=== PATIENT | female | born 1935 | race Caucasian/White ===

== ENCOUNTER 2021-07-05 19:56 | Inpatient (IN) ==
[2021-07-05] MEDS ORDERED: SODIUM CHLORIDE 0.9% 500 ML IV STA (21:40)
[2021-07-05] MEDS ORDERED: ONDANSETRON 4 MG/2 ML VIAL IV STA (21:40)
[2021-07-05 22:27] LABS: Basophils % 0.3 % (0.0-0.8); Eosinophils % 0.1 % (0.00-10.9); Hematocrit 33.7 VOL% (35.7-47.0); Hemoglobin 12.8 GM/DL (12.0-16.0); Immature Granulocytes % 0.5 %; Immature Granulocytes Absolute 0.07 #; Lymphocytes # 1.8 10*3/uL (1.4-4.0); Lymphocytes % 13.5 % (21.3-54.2); Mean Corpuscular Volume 88.7 FL (87-102); Mean Platelet Volume 9.1 FL (9.6-12.0); Monocytes # 1.1 10*3/uL (0.11-0.8); Monocytes % 8.3 % (1.7-12.7); Neutrophils % 77.3 % (38.7-73.9); Platelet Count 266 T/CUMM (130-400); Red Cell Distribution Width 10.9 % (9.3-17.3); White Blood Count 13.1 T/CUMM (4-12)
[2021-07-05 22:54] LABS: Alanine Aminotransferase 25 U/L (13-56); Albumin 3.8 G/DL (3.4-5.0); Alkaline Phosphatase 103 U/L (45-117); Aspartate Amino Transferase 30 U/L (0-37); Blood Urea Nitrogen 32 MG/DL (7-18); Carbon Dioxide 31 MMOL/L (21-32); Chloride 71 MMOL/L (98-107); Glucose 133 MG/DL (74-106); Osmolality,Calculated 237.2 MOS/KG (273-304); Potassium 2.9 MMOL/L (3.5-5.1)
[2021-07-05 22:56] LABS: Sodium 113 MMOL/L (136-145)
[2021-07-05] MEDS ORDERED: POTASSIUM CHLORIDE 20 MEQ TABLET PO STA (22:57)
[2021-07-05 23:06] LABS: RBC,Urine 6 /HPF (0-4); Squamous Epithelial Cell,Urine Occasional /HPF (0-10); Urine Appearance Clear (Clear); Urine Color Yellow (Yellow); Urine pH 6.5 (4.5-8.0)
[2021-07-05 23:07] LABS: Bilirubin,Urine Negative (Negative); Blood, Urine Trace mg/dL (Negative); Glucose,Urine (UA) Negative (Negative); Ketones,Urine Negative (Negative); Nitrite,Urine Negative (Negative); Protein,Urine Negative (Negative); Urine Urobilinogen 0.2 eU/dL (<2.0)
[2021-07-05] MEDS ORDERED: ALBUTEROL 2.5 MG/3 ML NEB RESP TX PRN (23:24)
[2021-07-05] MEDS ORDERED: ONDANSETRON 4 MG/2 ML VIAL IV PRN (23:25)
[2021-07-05] MEDS ORDERED: POTASSIUM CHLORIDE 20 MEQ TABLET PO ONE ×2 (23:55)
[2021-07-06] MEDS ORDERED: SODIUM CHLORIDE 3% INJ 100 ML IV ONE ×2 (01:00→05:02)
[2021-07-06] MEDS: PANTOPRAZOLE 40 MG VIAL IV SCH (01:01)
[2021-07-06 01:49] LABS: Calcium 9.1 MG/DL (8.5-10.1); Osmolality,Calculated 235.2 MOS/KG (273-304); Potassium 2.9 MMOL/L (3.5-5.1)
[2021-07-06 04:32] LABS: Basophils % 0.2 % (0.0-0.8); Eosinophils % 0.3 % (0.00-10.9); Hematocrit 32.3 VOL% (35.7-47.0); Hemoglobin 11.9 GM/DL (12.0-16.0); Immature Granulocytes % 0.5 %; Immature Granulocytes Absolute 0.05 #; Lymphocytes # 1.8 10*3/uL (1.4-4.0); Lymphocytes % 17.3 % (21.3-54.2); Mean Corpuscular HGB Conc 36.8 GM/DL (32-36); Mean Platelet Volume 9.7 FL (9.6-12.0); Monocytes # 1.1 10*3/uL (0.11-0.8); Monocytes % 10.4 % (1.7-12.7); Neutrophils % 71.3 % (38.7-73.9); Platelet Count 252 T/CUMM (130-400); Red Blood Count 3.59 MC/CUMM (3.8-5.5); White Blood Count 10.5 T/CUMM (4-12)
[2021-07-06 04:58] LABS: Albumin 3.5 G/DL (3.4-5.0); Bilirubin,Total 0.5 MG/DL (0.20-1.00); Calcium 8.8 MG/DL (8.5-10.1); Osmolality,Calculated 240.8 MOS/KG (273-304); Risk Ratio 2.61; Thyroid Stimulating Hormone 0.703 uIU/ml (0.358-3.74); Total Protein 6.7 G/DL (6.4-8.2)
[2021-07-06] MEDS: POTASSIUM CHLORIDE 20 MEQ TABLET PO PRN ×2 (05:30→15:13)
[2021-07-06] MEDS: INSULIN LISPRO 100 UNIT/ML SUBCUT SCH ×3 (05:31→18:22)
[2021-07-06] MEDS ORDERED: POTASSIUM CHLORIDE 20 MEQ TABLET PO ONE (07:00)
[2021-07-06 07:59] LABS: Calcium 9.3 MG/DL (8.5-10.1); Osmolality,Calculated 242.6 MOS/KG (273-304); Potassium 3.4 MMOL/L (3.5-5.1)
[2021-07-06] MEDS ORDERED: SODIUM CHLORIDE 0.9% 1,000 ML IV SCH (08:30)
[2021-07-06 12:26] LABS: Osmolality,Calculated 239.8 MOS/KG (273-304); Potassium 3.6 MMOL/L (3.5-5.1)
[2021-07-06 16:45] LABS: Calcium 8.6 MG/DL (8.5-10.1); Osmolality,Calculated 249.1 MOS/KG (273-304); Potassium 3.6 MMOL/L (3.5-5.1)
[2021-07-06] MEDS ORDERED: GLUCAGON 1 MG VIAL IM PRN (17:23)
[2021-07-06] MEDS ORDERED: DEXTROSE 10% 250 ML BAG IV PRN (17:30)
[2021-07-06] MEDS: SODIUM CHLORIDE 0.9% 1,000 ML IV SCH (18:00)
[2021-07-06 20:20] LABS: Calcium 8.8 MG/DL (8.5-10.1); Osmolality,Calculated 249.9 MOS/KG (273-304)
[2021-07-07] MEDS: PANTOPRAZOLE 40 MG VIAL IV SCH ×2 (00:02→21:11)
[2021-07-07 00:43] LABS: Calcium 8.9 MG/DL (8.5-10.1); Osmolality,Calculated 255.5 MOS/KG (273-304); Potassium 4.2 MMOL/L (3.5-5.1)
[2021-07-07] MEDS: INSULIN LISPRO 100 UNIT/ML SUBCUT SCH ×5 (00:52→20:43)
[2021-07-07 05:51] LABS: Basophils # 0.1 10*3/uL (0.0-0.2); Basophils % 0.8 % (0.0-0.8); Eosinophils # 0.1 10*3/uL (0.0-0.87); Eosinophils % 0.7 % (0.00-10.9); Hematocrit 35.2 VOL% (35.7-47.0); Hemoglobin 12.3 GM/DL (12.0-16.0); Immature Granulocytes % 0.2 %; Immature Granulocytes Absolute 0.02 #; Lymphocytes # 2.1 10*3/uL (1.4-4.0); Lymphocytes % 24.6 % (21.3-54.2); Mean Corpuscular HGB Conc 34.9 GM/DL (32-36); Mean Corpuscular Volume 96.2 FL (87-102); Mean Platelet Volume 11.7 FL (9.6-12.0); Monocytes # 0.8 10*3/uL (0.11-0.8); Monocytes % 9.9 % (1.7-12.7); Neutrophils % 63.8 % (38.7-73.9); Platelet Count 390 T/CUMM (130-400); Red Blood Count 3.66 MC/CUMM (3.8-5.5); Red Cell Distribution Width 11.6 % (9.3-17.3); White Blood Count 8.4 T/CUMM (4-12)
[2021-07-07 06:11] LABS: Calcium 9.1 MG/DL (8.5-10.1); Osmolality,Calculated 244.2 MOS/KG (273-304); Potassium 5.2 MMOL/L (3.5-5.1)
[2021-07-07 08:23] LABS: Calcium 9.1 MG/DL (8.5-10.1); Osmolality,Calculated 255.4 MOS/KG (273-304); Potassium 4.1 MMOL/L (3.5-5.1)
[2021-07-07] MEDS: SIMVASTATIN 20 MG TABLET PO SCH (11:11)
[2021-07-07] MEDS: RIVAROXABAN 10 MG TABLET PO SCH (11:12)
[2021-07-07] MEDS: CARTEOLOL 1% OPH SOLN 5 ML BOTTLE BOTH EYES SCH (11:13)
[2021-07-07] MEDS: BRIMONIDINE 0.1% OPH SOLN 5 ML BOTTLE BOTH EYES SCH ×2 (11:13→21:13)
[2021-07-07] MEDS: PHENYTOIN 50 MG PO SCH (12:30)
[2021-07-07 12:54] LABS: Calcium 8.8 MG/DL (8.5-10.1); Osmolality,Calculated 253.5 MOS/KG (273-304); Potassium 4.2 MMOL/L (3.5-5.1)
[2021-07-07] MEDS: SODIUM CHLORIDE 0.9% 1,000 ML IV SCH (15:07)
[2021-07-07 16:12] LABS: Osmolality,Calculated 256.2 MOS/KG (273-304); Potassium 4.4 MMOL/L (3.5-5.1)
[2021-07-07] MEDS ORDERED: PHENYTOIN 50 MG PO SCH ×2 (19:00→21:00)
[2021-07-07] MEDS: BIMATOPROST 0.01% OPH SOLN 2.5 ML BOTTLE BOTH EYES SCH (21:12)
[2021-07-08 05:34] LABS: Basophils # 0.1 10*3/uL (0.0-0.2); Basophils % 1.1 % (0.0-0.8); Eosinophils # 0.1 10*3/uL (0.0-0.87); Eosinophils % 0.6 % (0.00-10.9); Hemoglobin 11.7 GM/DL (12.0-16.0); Immature Granulocytes % 0.4 %; Immature Granulocytes Absolute 0.04 #; Lymphocytes # 1.4 10*3/uL (1.4-4.0); Lymphocytes % 12.2 % (21.3-54.2); Mean Corpuscular HGB Conc 34.4 GM/DL (32-36); Mean Corpuscular Volume 95.8 FL (87-102); Mean Platelet Volume 9.3 FL (9.6-12.0); Monocytes # 1.1 10*3/uL (0.11-0.8); Monocytes % 9.9 % (1.7-12.7); Neutrophils % 75.8 % (38.7-73.9); Platelet Count 266 T/CUMM (130-400); Red Blood Count 3.55 MC/CUMM (3.8-5.5); Red Cell Distribution Width 11.6 % (9.3-17.3); White Blood Count 11.1 T/CUMM (4-12)
[2021-07-08 05:52] LABS: Calcium 9.3 MG/DL (8.5-10.1); Osmolality,Calculated 253.4 MOS/KG (273-304); Potassium 4.2 MMOL/L (3.5-5.1)
[2021-07-08] MEDS: INSULIN LISPRO 100 UNIT/ML SUBCUT SCH ×4 (07:57→21:34)
[2021-07-08] MEDS: BRIMONIDINE 0.1% OPH SOLN 5 ML BOTTLE BOTH EYES SCH ×2 (08:16→22:57)
[2021-07-08] MEDS: LORATADINE 10 MG TABLET PO SCH (08:17)
[2021-07-08] MEDS: CARTEOLOL 1% OPH SOLN 5 ML BOTTLE BOTH EYES SCH (08:17)
[2021-07-08] MEDS: PROPRANOLOL 40 MG TABLET PO SCH (08:17)
[2021-07-08] MEDS: RIVAROXABAN 10 MG TABLET PO SCH (08:18)
[2021-07-08] MEDS: SIMVASTATIN 20 MG TABLET PO SCH (08:18)
[2021-07-08] MEDS: PHENYTOIN 50 MG PO SCH (08:18)
[2021-07-08] MEDS: SODIUM CHLORIDE 0.9% 1,000 ML IV SCH ×2 (10:18→10:30)
[2021-07-08] MEDS: PANTOPRAZOLE 40 MG VIAL IV SCH (21:35)
[2021-07-08] MEDS: BIMATOPROST 0.01% OPH SOLN 2.5 ML BOTTLE BOTH EYES SCH (22:57)
[2021-07-09 05:47] LABS: Basophils # 0.1 10*3/uL (0.0-0.2); Basophils % 0.9 % (0.0-0.8); Eosinophils # 0.1 10*3/uL (0.0-0.87); Eosinophils % 0.4 % (0.00-10.9); Hematocrit 31.8 VOL% (35.7-47.0); Hemoglobin 10.9 GM/DL (12.0-16.0); Immature Granulocytes % 0.5 %; Immature Granulocytes Absolute 0.06 #; Lymphocytes # 2.8 10*3/uL (1.4-4.0); Mean Corpuscular HGB Conc 34.3 GM/DL (32-36); Mean Corpuscular Volume 98.1 FL (87-102); Monocytes # 1.8 10*3/uL (0.11-0.8); Monocytes % 13.8 % (1.7-12.7); Neutrophils % 62.4 % (38.7-73.9); Platelet Count 236 T/CUMM (130-400); Red Blood Count 3.24 MC/CUMM (3.8-5.5); Red Cell Distribution Width 11.7 % (9.3-17.3); White Blood Count 12.7 T/CUMM (4-12)
[2021-07-09 05:58] LABS: Osmolality,Calculated 254.2 MOS/KG (273-304); Potassium 4.5 MMOL/L (3.5-5.1)
[2021-07-09] MEDS: SODIUM CHLORIDE 0.9% 1,000 ML IV SCH (06:15)
[2021-07-09] MEDS: INSULIN LISPRO 100 UNIT/ML SUBCUT SCH ×4 (07:24→20:15)
[2021-07-09] MEDS: BRIMONIDINE 0.1% OPH SOLN 5 ML BOTTLE BOTH EYES SCH ×2 (08:50→20:49)
[2021-07-09] MEDS: SIMVASTATIN 20 MG TABLET PO SCH (08:51)
[2021-07-09] MEDS: LORATADINE 10 MG TABLET PO SCH (08:51)
[2021-07-09] MEDS: RIVAROXABAN 10 MG TABLET PO SCH (08:51)
[2021-07-09] MEDS: PHENYTOIN 50 MG PO SCH ×3 (09:29→20:51)
[2021-07-09] MEDS: CARTEOLOL 1% OPH SOLN 5 ML BOTTLE BOTH EYES SCH (09:30)
[2021-07-09] MEDS: PROPRANOLOL 40 MG TABLET PO SCH (10:11)
[2021-07-09] MEDS: BIMATOPROST 0.01% OPH SOLN 2.5 ML BOTTLE BOTH EYES SCH (20:49)
[2021-07-09] MEDS: PANTOPRAZOLE 40 MG VIAL IV SCH (20:53)
[2021-07-10] MEDS: SODIUM CHLORIDE 0.9% 1,000 ML IV SCH ×3 (00:57→21:42)
[2021-07-10 05:57] LABS: Basophils # 0.1 10*3/uL (0.0-0.2); Basophils % 0.9 % (0.0-0.8); Eosinophils # 0.1 10*3/uL (0.0-0.87); Eosinophils % 0.9 % (0.00-10.9); Hematocrit 31.4 VOL% (35.7-47.0); Hemoglobin 10.8 GM/DL (12.0-16.0); Immature Granulocytes % 0.5 %; Immature Granulocytes Absolute 0.05 #; Lymphocytes # 2.3 10*3/uL (1.4-4.0); Lymphocytes % 20.9 % (21.3-54.2); Mean Corpuscular HGB Conc 34.4 GM/DL (32-36); Mean Corpuscular Volume 97.8 FL (87-102); Mean Platelet Volume 9.7 FL (9.6-12.0); Monocytes # 1.5 10*3/uL (0.11-0.8); Monocytes % 13.5 % (1.7-12.7); Neutrophils % 63.3 % (38.7-73.9); Platelet Count 252 T/CUMM (130-400); Red Blood Count 3.21 MC/CUMM (3.8-5.5); Red Cell Distribution Width 11.6 % (9.3-17.3); White Blood Count 10.8 T/CUMM (4-12)
[2021-07-10 06:24] LABS: Albumin 2.6 G/DL (3.4-5.0); Bilirubin,Total 0.4 MG/DL (0.20-1.00); Osmolality,Calculated 258.9 MOS/KG (273-304); Potassium 3.9 MMOL/L (3.5-5.1); Total Protein 6.3 G/DL (6.4-8.2)
[2021-07-10] MEDS: INSULIN LISPRO 100 UNIT/ML SUBCUT SCH ×4 (08:00→20:09)
[2021-07-10] MEDS: BRIMONIDINE 0.1% OPH SOLN 5 ML BOTTLE BOTH EYES SCH ×2 (09:45→20:32)
[2021-07-10] MEDS: LORATADINE 10 MG TABLET PO SCH (09:45)
[2021-07-10] MEDS: PROPRANOLOL 40 MG TABLET PO SCH (09:45)
[2021-07-10] MEDS: PHENYTOIN 50 MG PO SCH ×2 (09:45→20:33)
[2021-07-10] MEDS: CARTEOLOL 1% OPH SOLN 5 ML BOTTLE BOTH EYES SCH (10:00)
[2021-07-10] MEDS: RIVAROXABAN 10 MG TABLET PO SCH (10:23)
[2021-07-10] MEDS: SIMVASTATIN 20 MG TABLET PO SCH (10:23)
[2021-07-10] MEDS: ACETAMINOPHEN 325 MG TABLET PO PRN (13:39)
[2021-07-10] MEDS: BIMATOPROST 0.01% OPH SOLN 2.5 ML BOTTLE BOTH EYES SCH (20:32)
[2021-07-10] MEDS: PANTOPRAZOLE 40 MG VIAL IV SCH (20:33)
[2021-07-11 05:17] LABS: Basophils # 0.1 10*3/uL (0.0-0.2); Basophils % 1.3 % (0.0-0.8); Eosinophils # 0.1 10*3/uL (0.0-0.87); Eosinophils % 1.5 % (0.00-10.9); Hematocrit 29.9 VOL% (35.7-47.0); Hemoglobin 10.2 GM/DL (12.0-16.0); Immature Granulocytes % 0.5 %; Immature Granulocytes Absolute 0.04 #; Lymphocytes % 23.3 % (21.3-54.2); Mean Corpuscular HGB Conc 34.1 GM/DL (32-36); Mean Corpuscular Volume 98.7 FL (87-102); Mean Platelet Volume 9.4 FL (9.6-12.0); Neutrophils % 61.4 % (38.7-73.9); Platelet Count 255 T/CUMM (130-400); Red Blood Count 3.03 MC/CUMM (3.8-5.5); Red Cell Distribution Width 11.6 % (9.3-17.3); White Blood Count 8.5 T/CUMM (4-12)
[2021-07-11 05:37] LABS: Calcium 8.8 MG/DL (8.5-10.1); Osmolality,Calculated 261.7 MOS/KG (273-304); Potassium 4.4 MMOL/L (3.5-5.1)
[2021-07-11] MEDS: FERROUS SULFATE 325 MG TABLET PO SCH (09:55)
[2021-07-11] MEDS: PROPRANOLOL 40 MG TABLET PO SCH (09:55)
[2021-07-11] MEDS: RIVAROXABAN 10 MG TABLET PO SCH (09:55)
[2021-07-11] MEDS: LORATADINE 10 MG TABLET PO SCH (09:55)
[2021-07-11] MEDS: INSULIN LISPRO 100 UNIT/ML SUBCUT SCH ×4 (09:56→21:40)
[2021-07-11] MEDS: BRIMONIDINE 0.1% OPH SOLN 5 ML BOTTLE BOTH EYES SCH ×2 (09:56→21:39)
[2021-07-11] MEDS: PHENYTOIN 50 MG PO SCH ×2 (09:57→21:41)
[2021-07-11] MEDS: CARTEOLOL 1% OPH SOLN 5 ML BOTTLE BOTH EYES SCH (09:57)
[2021-07-11] MEDS: ACETAMINOPHEN 325 MG TABLET PO PRN ×2 (13:28→21:40)
[2021-07-11] MEDS: SODIUM CHLORIDE 0.9% 1,000 ML IV SCH ×2 (16:44→21:59)
[2021-07-11] MEDS ORDERED: SIMVASTATIN 20 MG TABLET PO SCH (21:00)
[2021-07-11] MEDS: BIMATOPROST 0.01% OPH SOLN 2.5 ML BOTTLE BOTH EYES SCH (21:39)
[2021-07-11] MEDS: PANTOPRAZOLE 40 MG VIAL IV SCH (21:40)
[2021-07-12 06:09] LABS: Basophils # 0.1 10*3/uL (0.0-0.2); Basophils % 1.1 % (0.0-0.8); Eosinophils # 0.2 10*3/uL (0.0-0.87); Eosinophils % 2.9 % (0.00-10.9); Hematocrit 32.9 VOL% (35.7-47.0); Hemoglobin 10.9 GM/DL (12.0-16.0); Immature Granulocytes % 0.6 %; Immature Granulocytes Absolute 0.04 #; Lymphocytes # 1.9 10*3/uL (1.4-4.0); Lymphocytes % 29.1 % (21.3-54.2); Mean Corpuscular HGB Conc 33.1 GM/DL (32-36); Mean Corpuscular Volume 101.2 FL (87-102); Mean Platelet Volume 9.4 FL (9.6-12.0); Monocytes # 0.8 10*3/uL (0.11-0.8); Monocytes % 12.1 % (1.7-12.7); Neutrophils % 54.2 % (38.7-73.9); Platelet Count 308 T/CUMM (130-400); Red Blood Count 3.25 MC/CUMM (3.8-5.5); Red Cell Distribution Width 11.8 % (9.3-17.3); White Blood Count 6.5 T/CUMM (4-12)
[2021-07-12 06:13] LABS: Calcium 9.3 MG/DL (8.5-10.1); Osmolality,Calculated 267.2 MOS/KG (273-304); Potassium 4.2 MMOL/L (3.5-5.1)
[2021-07-12] MEDS: INSULIN LISPRO 100 UNIT/ML SUBCUT SCH (07:53)
[2021-07-12] MEDS: RIVAROXABAN 10 MG TABLET PO SCH (08:02)
[2021-07-12] MEDS: PROPRANOLOL 40 MG TABLET PO SCH (08:02)
[2021-07-12] MEDS: LORATADINE 10 MG TABLET PO SCH (08:02)
[2021-07-12] MEDS: FERROUS SULFATE 325 MG TABLET PO SCH (08:02)
[2021-07-12] MEDS: BRIMONIDINE 0.1% OPH SOLN 5 ML BOTTLE BOTH EYES SCH (08:03)
[2021-07-12] MEDS: CARTEOLOL 1% OPH SOLN 5 ML BOTTLE BOTH EYES SCH (08:03)
[2021-07-12] MEDS: PHENYTOIN 50 MG PO SCH (08:06)
[2021-07-12] MEDS: SODIUM CHLORIDE 0.9% 1,000 ML IV SCH (08:07)
[2021-07-12 11:28] VITALS: BP 130/46
== END 2021-07-12 14:17 | disposition swing bed (61) | DRG 640 ==
LOC: EDUNIT# → EDBD → N.ED 19:56 → SUATTDRO 07-06 00:03 → N.EDINP 07-06 00:03 → N.CC 07-06 01:54 → N.3E 07-08 16:54
PROVIDERS: ADMIT Internal Medicine; ATTEND Internal Medicine